=== PATIENT | male | born 1995 | race Caucasian/White ===

== ENCOUNTER → 2024-09-23 10:41 | Outpatient (REF) | payer OTHER, SELFPAY | LOC: REG 10:41 | PROVIDERS: ATTENDING PHYSICIAN Physician Assistant | DX: R07.9 Chest pain, unspecified (principal) | CPT/HCPCS: 71046 ==

== ENCOUNTER → 2024-12-31 17:32 | Outpatient (REF) | payer OTHER, SELFPAY | LOC: RCS 17:32 | PROVIDERS: ATTENDING PHYSICIAN Internal Medicine Cardiovascular Disease; FAMILY PHYSICIAN Physician Assistant | DX: R07.9 Chest pain, unspecified (principal) | CPT/HCPCS: 93306 ==